=== PATIENT | female | born 2005 | race Two or more races ===

== ENCOUNTER 2023-10-12 00:25 | Inpatient (IN) | payer OTHER ==
[~2023-10-12] VITALS: Ht 170.2 cm; Wt 82.1 kg
[2023-10-12] MEDS ORDERED: AMPICILLIN SODIUM 2,000 MG VIAL IV STA (00:31)
[2023-10-12] MEDS ORDERED: PRENATABS RX T1 EACH PO (00:40)
[2023-10-12] MEDS ORDERED: ERYTHROMYCIN BASE 1 GM TUBE OP ONE ×2 (00:42→02:30)
[2023-10-12] MEDS ORDERED: LIDOCAINE HCL 1% 10ML VIAL ONE (00:43)
[2023-10-12] MEDS ORDERED: CHLORHEXIDINE GLUCONATE 120 ML BOTTLE TOP ONE ×2 (00:43→02:45)
[2023-10-12] MEDS ORDERED: OXYTOCIN 20 UNITS/1000ML RL PIGGYBAG IV ONE (00:43)
[2023-10-12] MEDS ORDERED: RINGERS SOLUTION,LACTATED 1,000 ML IV SCH (00:45)
[2023-10-12] MEDS ORDERED: MORPHINE SULFATE 4 MG/ML CARTRIDGE IV ONE (01:30)
[2023-10-12 02:07] LABS: INR 0.98; PARTIAL THROMBOPLASTIN TIME 26.5 SECONDS (22.0-34.0); PROTHROMBIN TIME 10.7 SECONDS (9.0-11.5)
[2023-10-12 02:08] LABS: HEMATOCRIT 36.5 % (36.0-45.00); HEMOGLOBIN 11.8 g/dL (12.0-15.00); MEAN CELL VOLUME 77.6 fL (80.00-100.00); MEAN CORPUSCULAR HEMOGLOBIN 25.2 pg (27.00-32.0); MEAN CORPUSCULAR HGB CONC 32.4 g/dl (32.0-36.0); PLATELET COUNT 306 K/uL (150-450)
[2023-10-12 02:12] LABS: ALBUMIN 3.3 gm/dL (3.4-5.0); BILIRUBIN TOTAL 0.3 mg/dL (0.3-1.2); CALCIUM 9.5 mg/dL (8.5-10.1); CREATININE SERUM 0.74 mg/dL (0.55-1.02); GFR 101.1; GLOBULINA 3.7 G/DL (2.4-3.5); POTASSIUM 4.06 mEq/L (3.5-5.1)
[2023-10-12] MEDS ORDERED: IBUprofen 400 MG TABLET PO PRN (02:30)
[2023-10-12] MEDS ORDERED: OXYTOCIN 1,000 ML IV SCH (02:45)
[2023-10-12] MEDS ORDERED: LIDOCAINE HCL 1% 10ML VIAL PERCUT ONE (02:45)
[2023-10-12] MEDS ORDERED: AMPICILLIN SODIUM 1,000 MG VIAL IV SCH (05:00)
[2023-10-12] MEDS ORDERED: PNV,CALCIUM 72/IRON/FOLIC ACID 1 TAB TABLET PO SCH (09:00)
[2023-10-12 10:27] LABS: HEMATOCRIT 35.2 % (36.0-45.00); HEMOGLOBIN 11.4 g/dL (12.0-15.00); MEAN CELL VOLUME 78.1 fL (80.00-100.00); MEAN CORPUSCULAR HEMOGLOBIN 25.3 pg (27.00-32.0); MEAN CORPUSCULAR HGB CONC 32.4 g/dl (32.0-36.0); PLATELET COUNT 273 K/uL (150-450); RED BLOOD COUNT 4.51 M/uL (4.00-6.00); RED CELL DISTRIBUTION WIDTH 15.2 % (11.5-14.5)
== END 2023-10-14 15:38 | disposition home or self-care (01) | DRG 807 ==
LOC: LDR 00:25 → OB/GYN 02:38
PROVIDERS: Obstetrics & Gynecology; ADMIT Obstetrics & Gynecology; ATTEND Obstetrics & Gynecology
PROC: 10E0XZZ Delivery of Products of Conception, External Approach (ICD-10-PCS; principal; 2023-10-12)
PROC: 0HQ9XZZ Repair Perineum Skin, External Approach (ICD-10-PCS; 2023-10-12)
PROC: 4A1HXCZ Monitoring of Products of Conception, Cardiac Rate, External Approach (ICD-10-PCS; 2023-10-12)
DX: O70.0 First degree perineal laceration during delivery (principal); Z37.0 Single live birth; Z3A.37 37 weeks gestation of pregnancy; Z20.822 Contact with and (suspected) exposure to COVID-19